=== PATIENT | female | born 1985 | race African-American/Black ===

== ENCOUNTER 2017-03-03 12:08 | Inpatient (IN) | payer BC ==
[~2017-03-03 12:08] MED LIST: DCN100 PO; IBU-200200 MG PO; MULTIPLE VIT PO
[2017-03-03] MEDS ORDERED: FLECAINIDE100 MG PO (13:29)
[2017-03-03] MEDS ORDERED: NORV5 PO (13:30)
[2017-03-03] MEDS ORDERED: BUSPAR10 PO (13:30)
[2017-03-04 04:44] LABS: BUN (BLOOD UREA NITROGEN) 15 MG/DL (6-23); CALCIUM, SERUM 9.5 MG/DL (8.5-10.4); CHLORIDE, SERUM 109 MMOL/L (96-112); CO2 (CARBON DIOXIDE) 25 MMOL/L (24-34); CREATININE 1.02 MG/DL (0.55-1.02); GFR AFRICAN AMERICAN 84 ML/MIN (>=60); GFR NON AFRICAN AMERICAN 72 ML/MIN (>=60); GLUCOSE, SERUM 89 MG/DL (60-99); POTASSIUM, SERUM 3.9 MMOL/L (3.5-5.3); SODIUM, SERUM 141 MMOL/L (135-148)
[2017-03-05] MEDS ORDERED: BETAPACE80 PO (09:05)
[2017-03-05] MEDS ORDERED: PRIN2.5 PO (09:05)
[2017-03-05 10:39] LABS: FREE T4 1.19 NG/DL (0.76-1.46); ULTRASENSITIVE TSH 1.43 MCIU/ML (0.358-3.740)
== END 2017-03-05 10:39 | disposition home or self-care (01) | DRG 309 ==
LOC: 5NO 12:08
PROVIDERS: Internal Medicine Cardiovascular Disease
DX: I49.3 Ventricular premature depolarization (principal); I50.22 Chronic systolic (congestive) heart failure
CPT/HCPCS: 80048; 83735; 84439; 84443; 93005; A9270-GY; J2405

== ENCOUNTER 2017-03-30 19:12 | Emergency (ER) | payer BC ==
[2017-03-30 18:17] LABS: BASOPHILS 0.3 %; BASOPHILS ABSOLUTE 0.02 10/3/uL (0.0-0.16); EOSINOPHILS 1.7 %; ER CBC TAT 0 Hrs 05 Mins; HEMATOCRIT 40.6 % (36.0-48.0); HEMOGLOBIN 13.6 g/dL (12.0-16.0); IMMATURE GRANULOCYTES 0.2 %; IMMATURE GRANULOCYTES ABSOLUTE 0.01 10/3/uL (0.0-0.11); LYMPHOCYTES 25.6 %; LYMPHOCYTES ABSOLUTE 1.52 10/3/uL (0.67-4.30); MEAN CORPUS HGB CONC 33.5 g/dL (32.0-36.0); MEAN CORPUSCULAR HEMOGLOB 30.6 pg (26.0-34.0); MEAN CORPUSCULAR VOLUME 91.2 fL (80-100); MEAN PLATELET VOLUME 10.4 fL (9.2-13.0); MONOCYTES 7.1 %; MONOCYTES ABSOLUTE 0.42 10/3/uL (0.21-1.20); NEUTROPHILS 65.1 %; NEUTROPHILS ABSOLUTE 3.87 10/3/uL (2.02-8.40); PLATELET COUNT 211 10/3/uL (150-400); RBC DISTRIBUTION WIDTH 11.9 % (12.0-16.0); RED CELL COUNT 4.45 10/6/uL (4.0-5.6); WHITE BLOOD CELLS 5.9 10/3/uL (4.5-10.5)
[2017-03-30 18:19] LABS: MANUAL DIFF NO %
[2017-03-30 18:24] LABS: INTERNATIONAL NORMAL RATI 1.1 UNITS (-); PARTIAL THROMBO TIME 25.5 SEC (22.5-37.2); PROTIME (NOT ORD) 13.9 SEC (12.0-14.5)
[2017-03-30 18:33] LABS: BUN (BLOOD UREA NITROGEN) 14 MG/DL (6-23); CALCIUM, SERUM 9.8 MG/DL (8.5-10.4); CHEST PAIN PROFILE TAT 0 Hrs 21 Mins; CHLORIDE, SERUM 107 MMOL/L (96-112); CREATININE 1.07 MG/DL (0.55-1.02); GFR AFRICAN AMERICAN 79 ML/MIN (>=60); GFR NON AFRICAN AMERICAN 68 ML/MIN (>=60); GLUCOSE, SERUM 96 MG/DL (60-99); POTASSIUM, SERUM 3.8 MMOL/L (3.5-5.3); SODIUM, SERUM 141 MMOL/L (135-148); TROPONIN I 0.02 NG/ML (<0.05)
[2017-03-30 18:34] LABS: CO2 (CARBON DIOXIDE) 30 MMOL/L (24-34)
[~2017-03-30 19:12] MED LIST changes: +BETAPACE80 PO; +BUSPAR10 PO; +FLECAINIDE100 MG PO; +NORV5 PO; +PRIN2.5 PO
== END 2017-03-30 22:30 | disposition home or self-care (01) ==
LOC: ER 19:12
PROVIDERS: Specialist
DX: R07.89 Other chest pain (principal); R51 Headache; R11.0 Nausea; R05 Cough; R06.00 Dyspnea, unspecified; I11.0 Hypertensive heart disease with heart failure; I50.9 Heart failure, unspecified; Z88.0 Allergy status to penicillin; Z88.5 Allergy status to narcotic agent; Z91.040 Latex allergy status; Z79.899 Other long term (current) drug therapy
CPT/HCPCS: 80048; 83735; 84484; 85025; 85610; 85730; 93005; 93225; 99285